=== PATIENT | male | born 1980 | race Caucasian/White ===

== ENCOUNTER 2017-05-22 08:40 | Day surgery (SDC) | payer OTHER ==
[~2017-05-22] VITALS: Ht 193 cm; Wt 122.5 kg
[~2017-05-22 08:40] MED LIST: BACLOFEN20 MG PO; BUSPIRONE HCL7.5 MG PO; COZAAR50 MG PO; DICLOFENAC POTA50 MG PO; DULOXETINE HCL60 MG PO; FOLIC ACID1 MG PO; GABAPENTIN600 MG PO; HYDROXYCHLOROQ200 MG PO; IRBESARTAN-HCT1 EACH PO; MORPHINE SULFAT15 MG PO; PANTOPRAZOLE SO40 MG PO; PROMETHAZINE HC25 M1 PO; SUBOXONE 8 MG-1 EAC1 SL; TRAMADOL HCL300 MG PO; TRAZODONE HCL50 MG PO; VOLTAREN100 GM TOP; ZOFRAN ODT4 MG PO
--- NOTE | 2017-05-22 10:14 | NUR ---
05/22/17 1014 Katrina Cruz 0954 RESP EVEN AND UNLABORED WITH JAW THRUST NEEDED BY RN. 1000 PT REACTIVE TO STIMULI, PT BACK TO SLEEP ORAL AIRWAY REMAINS IN PLACE. JAW THRUST NOT NEEDED TO MAINTAIN AIRWAY. 1010 PT PASSING GAS/AIR.
--- NOTE | 2017-05-30 10:17 | OR ---
[facility] [address] [place], [place] [address] Signed DATE OF OPERATION: 05/22/2017 SURGEON: Itzel Rogers MD PREOPERATIVE DIAGNOSES: 1. Anemia. 2. Intermittent rectal bleeding. 3. Anal pain. POSTOPERATIVE DIAGNOSIS: Moderate external hemorrhoids. PROCEDURE: Colonoscopy without biopsy. ESTIMATED BLOOD LOSS: None. INDICATIONS: Sam is a 36-year-old gentleman with significant past medical history. 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 He is also allergic to Compazine, steroid, nasal sprays, and CT contrast. He has been on Suboxone recently. He has sleep apnea and requires a CPAP mask. He was found to be anemic while on his methotrexate. He has also had some intermittent rectal bleeding. He said most days when he wipes he will see a little pink. He seems to have some pain around the anus as well. He said it is associated with his bowel movements. His primary care provider asked him to see me for a colonoscopy. He told me there is no family history of colon cancer or polyps. In the office, I gave him a pamphlet on colonoscopy. We looked at that together along with the risks including, but not limited to gas bloating, crampy abdominal pain, bleeding, perforation, requiring surgery, and missed diagnosis. We also discussed the need for sedation. Given his complex history, we asked that an anesthesia provider help us with increased monitoring sedation with propofol. He had expressed understanding and wished to proceed. PROCEDURE NOTE: Sam was taken into our endoscopy suite and placed in the left lateral decubitus position. He was given IV sedation with propofol per our nurse stud master/mistress. A digital rectal exam was performed. He does have moderate circumferential external hemorrhoids. The adult colonoscope was introduced and advanced under direct visualization of camera up to the cecum. His bowel prep was below average. He had multiple areas of liquid Electronically Signed By: ITZEL ROGERS MD 05/30/17 1017 PATIENT NAME: SAM LEI OPERATIVE REPORT DATE OF : 76 PHYSICIAN: ITZEL ROGERS MD REPORT #: [id number] REPORT IS CONFIDENTIAL AND NOT TO BE RELEASED WITHOUT AUTHORIZATION [facility] [address] [place], [place] [address] Signed particulate stool matter that we could not quite suction out completely. Many areas of mucosa could not be fully evaluated. What we did see was unremarkable. No source of any bleeding in the colon or rectum. When we retroflexed the scope in the rectum, he had too much liquid particulate stool matter to visualize the top of the anal canal. After this, the gas was suctioned out, the colonoscope removed. Sam tolerated the procedure quite well. RECOMMENDATIONS: Sam can follow up in our office as needed. In the future, he should double his prep for endoscopies. MD LORELEI Akbar/LEANNEL /[id number] cc: MELA Ross MD Electronically Signed By: ITZEL ROGERS MD 05/30/17 1017 PATIENT NAME: SAM LEI OPERATIVE REPORT DATE OF : 76 PHYSICIAN: ITZEL ROGERS MD REPORT #: [id number] REPORT IS CONFIDENTIAL AND NOT TO BE RELEASED WITHOUT AUTHORIZATION
== END 2017-05-22 10:51 | disposition home or self-care (01) ==
LOC: DS 08:40 → OPS 08:40 → DS 10:15 → OPS 10:45
PROVIDERS: Colon & Rectal Surgery
PROC: 0DJD8ZZ Inspection of Lower Intestinal Tract, Via Natural or Artificial Opening Endoscopic (ICD-10-PCS; principal; 2017-05-22 09:00)
DX: K64.4 Residual hemorrhoidal skin tags (principal); D64.9 Anemia, unspecified; I10 Essential (primary) hypertension; E78.5 Hyperlipidemia, unspecified; G47.33 Obstructive sleep apnea (adult) (pediatric); K21.9 Gastro-esophageal reflux disease without esophagitis; E66.9 Obesity, unspecified; M06.9 Rheumatoid arthritis, unspecified; M35.00 Sjogren syndrome, unspecified; M65.811 Other synovitis and tenosynovitis, right shoulder; M79.7 Fibromyalgia; F32.9 Major depressive disorder, single episode, unspecified; D72.819 Decreased white blood cell count, unspecified; Z98.890 Other specified postprocedural states; F17.210 Nicotine dependence, cigarettes, uncomplicated; Z88.5 Allergy status to narcotic agent; Z88.1 Allergy status to other antibiotic agents; Z88.8 Allergy status to other drugs, medicaments and biological substances; Z79.899 Other long term (current) drug therapy; Z68.34 Body mass index [BMI] 34.0-34.9, adult
CPT/HCPCS: 99156; 99157; J2704; J7120